=== PATIENT | female | born 1970 | race Hispanic/Latino ===

== ENCOUNTER 2022-10-13 19:13 | Emergency (ER) | payer SELFPAY ==
[~2022-10-13] VITALS: Ht 149.9 cm; Wt 68.5 kg
[2022-10-13] MEDS ORDERED: KETOROLAC TROMETHAMINE 30 MG/ML VIAL IV STA (19:50)
[2022-10-13] MEDS ORDERED: LORAZEPAM INJ 2 MG/ML VIAL IV ONE (20:00)
[2022-10-13] MEDS ORDERED: Morphine 4mg INJECTION 4 MG/ML INJ IV ONE ×2 (20:00→21:30)
[2022-10-13] MEDS ORDERED: KETOROLAC TROMETHAMINE 30 MG/ML VIAL ONE (20:11)
[2022-10-13] MEDS ORDERED: LORAZEPAM INJ 2 MG/ML VIAL ONE (20:11)
[2022-10-13] MEDS ORDERED: Morphine 4mg INJECTION 4 MG/ML INJ ONE ×2 (20:12→21:41)
[2022-10-13] MEDS ORDERED: CYCLOBENZAPRINE5 MG PO (21:18)
== END 2022-10-13 21:43 | disposition home or self-care (01) ==
LOC: FSED 19:17
DX: M43.6 Torticollis (principal)
CPT/HCPCS: 70486; 99284; J1885; J2060; J2270

== ENCOUNTER 2024-02-16 13:11 | Emergency (ER) | payer OTHER ==
[~2024-02-16] VITALS: Ht 149.9 cm; Wt 68.5 kg
[~2024-02-16 13:11] MED LIST: CYCLOBENZAPRINE5 MG PO
[2024-02-16] MEDS: IBUPROFEN 600 MG TAB PO ONE (13:57)
[2024-02-16] MEDS ORDERED: BROMFED DM COU118 ML PO (14:54)
[2024-02-16 14:58] VITALS: PULSE 110; RESP 16; TEMP 100.1; O2SAT 100
== END 2024-02-16 14:58 | disposition home or self-care (01) ==
LOC: FSED 13:21
DX: R05.9 Cough, unspecified (principal); U07.1 COVID-19
CPT/HCPCS: 0223U; 71046; 81003; 87400; 99283